=== PATIENT | female | born 2000 | race Caucasian/White ===

== ENCOUNTER 2019-06-20 21:43 | Emergency (ER) | payer SELFPAY ==
[~2019-06-20] VITALS: Ht 167.6 cm; Wt 71.4 kg
[2019-06-20 21:52] VITALS: Ht 167.6 cm; Wt 71.4 kg
[2019-06-21] VITALS: BP 116/53
== END 2019-06-21 | disposition home or self-care (01) ==
LOC: ED 21:43
DX: T26.01XA Burn of right eyelid and periocular area, initial encounter (principal); X08.8XXA Exposure to other specified smoke, fire and flames, initial encounter; Y93.89 Activity, other specified; Y92.89 Other specified places as the place of occurrence of the external cause; Y99.8 Other external cause status
CPT/HCPCS: 90715; J7040; V2632